=== PATIENT | female | born 1970 | race Caucasian/White ===

== ENCOUNTER → 2021-11-29 | Outpatient (CLI) | payer SELFPAY ==
[2021-11-29 12:47] LABS: HEMOGLOBIN 13.2 gm/dl (12.3-15.3); RED BLOOD COUNT 4.27 M/UL (4.00-5.10); WHITE BLOOD COUNT 6.7 K/UL (4.5-11.0)
[2021-11-29 13:06] LABS: BUN/CREATININE RATIO 28 (0-10)
[2021-11-30 08:15] LABS: VITAMIN D, 25-HYDROXY 27.2 ng/mL (30.0-100.0)
== END ==
LOC: LAB 11:35
PROVIDERS: Family Medicine
DX: Z01.812 Encounter for preprocedural laboratory examination (principal)
CPT/HCPCS: 36415; 80053; 83036; 85025; 85610; 85730; 87081; G0480